=== PATIENT | male | born 1950 | race Caucasian/White ===

== ENCOUNTER → 2017-03-11 | Outpatient (CLI) | payer MEDICARE ==
[~2017-03-11] MED LIST: FISH OIL PO; MULT-516 PO; NONE PER PT
[2017-03-11 14:40] LABS: PATH.CAST-FLAG NOT PRESENT; SPERM-FLAG NOT PRESENT; SRC-FLAG NOT PRESENT; XTAL-FLAG NOT PRESENT; YLC-FLAG NOT PRESENT
[2017-03-11 14:51] LABS: ASPARTATE AMINO TRANSFERASE 10 U/L (15-37); BLOOD UREA NITROGEN 14 mg/dL (7-18)
== END | disposition home or self-care (01) ==
LOC: STAR 13:27
PROVIDERS: ATTEND Urology
DX: Z01.810 Encounter for preprocedural cardiovascular examination (principal); Z01.812 Encounter for preprocedural laboratory examination; N40.0 Benign prostatic hyperplasia without lower urinary tract symptoms; N21.0 Calculus in bladder
CPT/HCPCS: 36415; 80053; 81001; 85025; 85610; 85730; 87086; 93005

== ENCOUNTER 2017-03-20 05:15 | Day surgery (SDC) | payer MEDICARE ==
[~2017-03-20] VITALS: Ht 170.2 cm; Wt 74.0 kg
[2017-03-20] MEDS ORDERED: LACTATED RINGERS 1,000 ML IV SCH (05:43)
[2017-03-20 05:44] VITALS: BP 184/98
[2017-03-20 06:03] VITALS: BP 176/95
[2017-03-20] MEDS ORDERED: KETAMINE 10 MG/ML, 20ML ONE (07:17)
[2017-03-20] MEDS ORDERED: FENTANYL PF 100 MCG/2ML ONE ×3 (07:17→09:13)
[2017-03-20] MEDS ORDERED: OXYcodone 5 MG/5 ML ORAL.SOL UDC PO PRN (08:00)
[2017-03-20] MEDS ORDERED: HYDROmorphone 1 MG/ML, 1ML IV PRN (08:00)
[2017-03-20] MEDS ORDERED: hydrALAzine 20 MG/ML, 1ML IV PRN (08:00)
[2017-03-20] MEDS ORDERED: LABETALOL 5MG/ML, 20ML IV PRN (08:00)
[2017-03-20] MEDS ORDERED: ONDANSETRON 2MG/ML, 2ML IVPush PRN ×2 (08:00→12:30)
[2017-03-20] MEDS ORDERED: MIDAZOLAM 1 MG/ML, 2ML IV PRN (08:00)
[2017-03-20] MEDS ORDERED: PROMETHAZINE 25 MG/ML, 1ML IV PRN (08:00)
[2017-03-20] MEDS ORDERED: MEPERIDINE/PF 25MG/0.5ML IVPush PRN (08:00)
[2017-03-20] MEDS: FENTANYL PF 100 MCG/2ML IV PRN ×3 (08:55→09:19)
[2017-03-20] MEDS ORDERED: MIDAZOLAM 1 MG/ML, 2ML ONE (09:13)
[2017-03-20] MEDS ORDERED: OXYcodone 5 MG/5 ML ORAL.SOL UDC ONE (09:14)
[2017-03-20] MEDS ORDERED: hydrALAzine 20 MG/ML, 1ML ONE (09:33)
[2017-03-20] MEDS ORDERED: OPIUM/BELLADONNA SUPP.RECT 16.2-30 MG ONE (10:18)
[2017-03-20] MEDS ORDERED: OPIUM/BELLADONNA SUPP.RECT 16.2-30 MG PR ONE (10:30)
[2017-03-20] MEDS ORDERED: ONDANSETRON 2MG/ML, 2ML ONE ×2 (11:03→12:24)
[2017-03-20] MEDS ORDERED: CEFAZOLIN 1,000 MG ONE (11:03)
[2017-03-20] MEDS ORDERED: NEOSTIGMINE 1 MG/ML, 10ML ONE (11:03)
[2017-03-20] MEDS ORDERED: ROCURONIUM 10 MG/ML ONE (11:03)
[2017-03-20] MEDS ORDERED: PROPOFOL 10 MG/ML, 20ML ONE (11:03)
[2017-03-20] MEDS ORDERED: GLYCOPYRROLATE 0.2MG/1ML ONE (11:03)
== END 2017-03-20 12:55 | disposition home or self-care (01) ==
LOC: OUT 05:15
PROVIDERS: ATTEND Urology
DX: N21.0 Calculus in bladder (principal); N40.1 Benign prostatic hyperplasia with lower urinary tract symptoms; N13.8 Other obstructive and reflux uropathy; N34.2 Other urethritis; I10 Essential (primary) hypertension; Z88.3 Allergy status to other anti-infective agents; Z87.442 Personal history of urinary calculi; Z72.89 Other problems related to lifestyle; Z87.440 Personal history of urinary (tract) infections; Z82.49 Family history of ischemic heart disease and other diseases of the circulatory system
CPT/HCPCS: 52317; 52601; 82360; 88300; J0360; J0690; J2250; J2405; J2704; J2710; J3010; J7120; J3490

== ENCOUNTER 2017-09-12 17:39 | Emergency (ER) | payer MEDICARE ==
[~2017-09-12] VITALS: Ht 170.2 cm; Wt 75.2 kg
[2017-09-12] MEDS ORDERED: LABETALOL 5MG/ML, 20ML ONE (18:07)
[2017-09-12] MEDS ORDERED: ENALAPRILAT 1.25 MG/ML, 2ML ONE (18:07)
[2017-09-12 18:30] LABS: HEMATOCRIT 51.2 % (39.2-51.8); HEMOGLOBIN 17.7 g/dL (13.7-18.0); WHITE BLOOD COUNT 8.8 x10^3/uL (3.4-10)
[2017-09-12 18:41] LABS: BLOOD UREA NITROGEN 12 mg/dL (7-18)
[2017-09-12 18:52] LABS: IS PT STATUS REG ER OR PRE ER? YES
[2017-09-12] MEDS ORDERED: LABETALOL 5MG/ML, 20ML IVPush ONE (19:00)
[2017-09-12] MEDS ORDERED: ENALAPRILAT 1.25 MG/ML, 2ML IV ONE (19:00)
[2017-09-12] MEDS ORDERED: SODIUM CHLORIDE FLUSH 10ML SYR IVF ONE (19:00)
[2017-09-12] MEDS ORDERED: ASPIRIN 325 MG TABLET ONE (19:50)
[2017-09-12 19:59] VITALS: BP 176/89
[2017-09-12] MEDS ORDERED: ASPIRIN 325 MG TABLET PO ONE (20:00)
== END 2017-09-12 20:11 | disposition home or self-care (01) ==
LOC: ED 20:05
DX: I10 Essential (primary) hypertension (principal); H53.2 Diplopia; N40.0 Benign prostatic hyperplasia without lower urinary tract symptoms
CPT/HCPCS: 36415; 70450; 70551; 71010; 80048; 82040; 84484; 85025; 93005; 96374

== ENCOUNTER 2020-05-02 21:49 | Emergency (ER) | payer MEDICARE ==
[~2020-05-02] VITALS: Ht 170.2 cm; Wt 76.8 kg
[2020-05-02 21:58] VITALS: BP 141/81
[2020-05-02 22:37] LABS: BASOPHILS # (AUTO) 0.03 x10^3/uL (0-0.1); BASOPHILS % (AUTO) 0 % (0-1); EOSINOPHILS # (AUTO) 0.21 x10^3/uL (0-0.4); EOSINOPHILS % (AUTO) 2 % (1-7); LYMPHOCYTES # (AUTO) 2.38 x10^3/uL (1-3.4); LYMPHOCYTES % (AUTO) 26 % (22-44); MD NO; MEAN CORPUSCULAR HEMOGLOBIN 29.3 pg (27.5-34.5); MEAN CORPUSCULAR HGB CONC 32.7 g/dL (33.2-36.2); MEAN CORPUSCULAR VOLUME 89.7 fL (81-97); MEAN PLATELET VOLUME 9.6 fL (7.4-10.4); MONOCYTES # (AUTO) 0.45 x10^3/uL (0.2-0.8); MONOCYTES % (AUTO) 5 % (2-9); NEUTROPHILS # (AUTO) 6.22 x10^3/uL (1.8-6.8); NEUTROPHILS % (AUTO) 67 % (42-75); PLATELET COUNT 174 x10^3/uL (130-400); RED BLOOD COUNT 5.82 x10^6/uL (4.38-5.82); RED CELL DISTRIBUTION WIDTH 14.7 % (9.4-14.8)
--- NOTE | 2020-05-02 22:40 | NUR ---
PT PROVIDED URINE SAMPLE FOR COLLECTION. URINE VERY DARK RED, AND THICK FROM PRESENCE OF BLOOD. PT C/O PASSING CLOTS. DENIES ANY PAIN, FEVER, OR ISSUES WITH URINATION BEYOND THE PRESENCE OF BLOOD. STATES BLEEDING STARTED AT 5PM TODAY. DENIES ANY FURTHER NEEDS AT THIS TIME, CALL LIGHT IN REACH.
[2020-05-02 22:46] LABS: MICROSCOPIC INDICATED
[2020-05-02 22:48] LABS: ANION GAP 4 mmol/L (5-15); CALCIUM 8.9 mg/dL (8.5-10.1); CHLORIDE 109 mmol/L (98-107)
[2020-05-03] MEDS ORDERED: CEFDINIR 300 MG CAPSULE ONE (00:02)
[2020-05-03] MEDS ORDERED: CEFDINIR 300 MG CAPSULE PO ONE (00:30)
== END 2020-05-03 00:10 | disposition home or self-care (01) ==
LOC: ED 22:20
DX: N30.01 Acute cystitis with hematuria (principal); I10 Essential (primary) hypertension
CPT/HCPCS: 36415; 80048; 81001; 82040; 85025; 87086; 99283